=== PATIENT | female | born 1995 | race Caucasian/White ===

== ENCOUNTER 2023-03-15 01:13 | Emergency (ER) | payer OTHER ==
[2023-03-15 01:23] VITALS: TEMP 98.7
[2023-03-15] MEDS ORDERED: KETOROLAC 15 MG/ML 1 ML VIAL IM STA (02:27)
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
[2023-03-15 03:12] VITALS: BP 120/84; PULSE 95; RESP 16
[2023-03-15] MEDS ORDERED: LIDOCAINE 5% PATCH TOPICAL STA (03:22)
[2023-03-15] MEDS ORDERED: LIDOCAINE 5% PATCH TOPICAL SCH (09:00)
== END 2023-03-15 03:30 | disposition home or self-care (01) ==
LOC: EC 01:13
DX: S23.41XA Sprain of ribs, initial encounter (principal); F17.200 Nicotine dependence, unspecified, uncomplicated; Z86.59 Personal history of other mental and behavioral disorders; Z88.0 Allergy status to penicillin; Y09 Assault by unspecified means
CPT/HCPCS: 71101; 99285; 96372; J1885